=== PATIENT | female | born 1955 | race Caucasian/White ===

== ENCOUNTER → 2017-01-24 | Outpatient (CLI) | payer BC ==
[~2017-01-24] MED LIST: ADVIN50/60 INH; ALBU1AER9 INH; AMOX250C3 PO; ASPEC325 PO; CITA40TA12 PO; CLB/200 PO; FRRG PO; FURO-85 PO; METAMUCIL PO; MINO100C22 PO; NAPR1TAB9 PO; OMEP20CA59 PO
--- NOTE | 2017-01-25 13:08 | MAMMOGRAPHY REPORT ---
BILATERAL DIGITAL SCREENING MAMMOGRAM TOMOSYNTHESIS WITH CAD: 01/24/2017 CLINICAL HISTORY: Routine screening. Patient has no complaints. TECHNIQUE: Breast tomosynthesis in addition to standard 2D mammography was performed. Current study was also evaluated with a Computer Aided Detection (CAD) system. COMPARISON: Comparison is made to exams dated: 08/02/2014 mammogram, 07/26/2013 mammogram, 12/18/2010 mammogram, 12/15/2009 mammogram - [facility], 11/26/2008, and 10/16/2007. BREAST COMPOSITION: There are scattered areas of fibroglandular density in both breasts. FINDINGS: There are mild vascular calcifications within the left breast. No new suspicious mass, ar chitectural distortion or cluster of microcalcifications is seen. IMPRESSION: ACR BI-RADS CATEGORY 1: NEGATIVE There is no mammographic evidence of malignancy. A 1 year screening mammogram is recommended. The p atient will receive written notification of the results. Approximately 10% of breast cancers are not detected with mammography. A negative mammographic repor t should not delay biopsy if a clinically suggestive mass is present. Giana Mendoza M.D. ay/:01/24/2017 17:15:10 Corporate Strategist: Emi ODONNELL(Amanda)(Layla)([place]), [facility] letter sent: Normal 1/2 BI-RADS Code: ACR BI-RADS Category 1: Negative
== END | disposition home or self-care (01) ==
LOC: C.MAMM 14:21
PROVIDERS: ATTEND Family Medicine
DX: Z12.31 Encounter for screening mammogram for malignant neoplasm of breast (principal)

== ENCOUNTER 2023-03-11 09:52 | Observation (INO) ==
--- NOTE | 2023-03-03 12:42 | PAT Medication Instructions ---
Medication Instructions Date of Service March 03, 2023 Home Medications Medication Instructions Recorded amoxicillin 500 mg tablet 2,000 mg PO ONCE #4 tabs 07/29/22 amoxicillin 500 mg tablet 2,000 mg PO ONCE albuterol sulfate 90 mcg/actuation aerosol inhaler 2 inh inhalation QID PRN amantadine HCl 100 mg tablet 200 mg PO QAM aspirin 81 mg tablet,delayed release 81 mg PO DAILY atorvastatin 40 mg tablet 40 mg PO QAM carbidopa 25 mg-levodopa 100 mg tablet 1 tab PO TID celecoxib 200 mg capsule (Celebrex) 200 mg PO BID cholecalciferol (vitamin D3) 25 mcg (1,000 unit) tablet (Vitamin D3) 25 mcg PO DAILY cyanocobalamin (vitamin B-12) 1,000 mcg tablet 1,000 mcg PO DAILY duloxetine 60 mg capsule,delayed release 60 mg PO QAM fluticasone furoate 100 mcg-vilanterol 25 mcg/dose inhalation powder (Breo Ellipta) 1 inh inhalation QAM lisinopril 10 mg tablet 10 mg PO QAM minocycline 100 mg capsule 100 mg PO QAM pantoprazole 40 mg tablet,delayed release 40 mg PO BID ropinirole 0.25 mg tablet 0.5 mg PO HS vibegron 75 mg tablet (Gemtesa) 75 mg PO HS Continue as directed amoxicillin 500 mg tablet 2,000 mg PO ONCE aspirin 81 mg tablet,delayed release 81 mg PO DAILY (unless directed otherwise by surgeon) ASK your surgeon for instructions celecoxib 200 mg capsule (Celebrex) 200 mg PO BID DO NOT take the morning of surgery cholecalciferol (vitamin D3) 25 mcg (1,000 unit) tablet (Vitamin D3) 25 mcg PO DAILY cyanocobalamin (vitamin B-12) 1,000 mcg tablet 1,000 mcg PO DAILY lisinopril 10 mg tablet 10 mg PO QAM Take morning of surgery With a small sip of water, OTHERWISE NOTHING TO EAT OR DRINK AFTER MIDNIGHT: albuterol sulfate 90 mcg/actuation aerosol inhaler 2 inh inhalation QID PRN(use if needed; please bring with you to hospital day of surgery if possible) atorvastatin 40 mg tablet 40 mg PO QAM carbidopa 25 mg-levodopa 100 mg tablet 1 tab PO TID duloxetine 60 mg capsule,delayed release 60 mg PO QAM fluticasone furoate 100 mcg-vilanterol 25 mcg/dose inhalation powder (Breo Ellipta) 1 inh inhalation QAM minocycline 100 mg capsule 100 mg PO QAM amantadine HCl 100 mg tablet 200 mg PO QAM pantoprazole 40 mg tablet,delayed release 40 mg PO BID Take evening before surgery albuterol sulfate 90 mcg/actuation aerosol inhaler 2 inh inhalation QID PRN(if needed) carbidopa 25 mg-levodopa 100 mg tablet 1 tab PO TID pantoprazole 40 mg tablet,delayed release 40 mg PO BID ropinirole 0.25 mg tablet 0.5 mg PO HS vibegron 75 mg tablet (Gemtesa) 75 mg PO HS Other Notes If you have any questions please call us at [phone] or [phone] or [phone] or [phone]
--- NOTE | 2023-03-04 12:05 | Anesthesiology Consultation ---
Date of Service March 04, 2023 Assessment & Plan (1) Encounter for pre-operative examination: - COVID screening: Per assessment on 03/04: No known COVID-19 positive contacts or current COVID-19 related symptoms. Travel screen negative. At surgeon discretion if preop Covid testing being done. - Outpatient joint assessment: Pt currently scheduled for inpatient pathway. If surgeon requests review for outpatient joint pathway, patient is not recommended candidate for outpatient joint program from anesthesia standpoint. Chart Review Chart Review: Acceptable Risk for Surgery and Patient seen in Pre Admission Testing Teaching & Discussion Pre-Anesthesia Teaching/Discussion Notes: Instructed NPO after midnight before surgery,except medications with 15 cc of water. Medication instructions provided according to the PAT guidelines. History Surgery Operation Date: 03/11/23 10:30 Proposed Procedures p Right Total Knee Arthroplasty - Akshat Maldonado MD Height/Weight Height: 5 ft 4 in Weight: 100.9 kg Allergies Allergy/AdvReac Type Severity Reaction Status Date / Time bee venom protein (honey bee) Allergy Intermediate Hives Verified 03/03/23 10:57 midazolam AdvReac Intermediate hyper, Verified 03/03/23 10:57 agitation Medications Home Medications Medication Instructions Recorded Confirmed Last Taken amoxicillin 500 mg tablet 2,000 mg PO ONCE #4 tabs 07/29/22 03/03/23 Unknown albuterol sulfate 90 mcg/actuation 2 inh inhalation QID PRN sob 03/03/23 03/03/23 Unknown aerosol inhaler amantadine HCl 100 mg tablet 200 mg PO QAM 03/03/23 03/03/23 Unknown aspirin 81 mg tablet,delayed 81 mg PO DAILY 03/03/23 03/03/23 Unknown release atorvastatin 40 mg tablet 40 mg PO QAM 03/03/23 03/03/23 Unknown carbidopa 25 mg-levodopa 100 mg 1 tab PO TID 03/03/23 03/03/23 Unknown tablet celecoxib 200 mg capsule (Celebrex) 200 mg PO BID 03/03/23 03/03/23 Unknown cholecalciferol (vitamin D3) 25 25 mcg PO DAILY 03/03/23 03/03/23 Unknown mcg (1,000 unit) tablet (Vitamin D3) cyanocobalamin (vitamin B-12) 1,000 mcg PO DAILY 03/03/23 03/03/23 Unknown 1,000 mcg tablet duloxetine 60 mg capsule,delayed 60 mg PO QAM 03/03/23 03/03/23 Unknown release fluticasone furoate 100 1 inh inhalation QAM 03/03/23 03/03/23 Unknown mcg-vilanterol 25 mcg/dose inhalation powder (Breo Ellipta) lisinopril 10 mg tablet 10 mg PO QAM 03/03/23 03/03/23 Unknown minocycline 100 mg capsule 100 mg PO QAM 03/03/23 03/03/23 Unknown pantoprazole 40 mg tablet,delayed 40 mg PO BID 03/03/23 03/03/23 Unknown release ropinirole 0.25 mg tablet 0.5 mg PO HS 03/03/23 03/03/23 Unknown vibegron 75 mg tablet (Gemtesa) 75 mg PO HS 03/03/23 03/03/23 Unknown Past Medical History Medical History Anxiety and depression Arthritis Asthma COPD (chronic obstructive pulmonary disease) GERD (gastroesophageal reflux disease) History of COVID-19 05/2021 + 04/2022 > residual loss of taste Hyperlipidemia Hypertension Restless leg syndrome Right knee DJD Sarcoidosis of lung No current/recent issues Exercise / Class Metabolic Activity III < 4 Walking/Shop/Light housework (one FS (no CP, + SOB)) Past Family History Family History Other No family history of adverse response to anesthesia Past Surgical History Surgical History History of bilateral tubal ligation History of bronchoscopy History of cholecystectomy History of colonoscopy History of herniorrhaphy Right inguinal History of left knee replacement History of tonsillectomy and adenoidectomy History of tooth extraction Past Anesthesia History No Family Hx of Anesthesia Complications and Other (Combative with remote surgery, no similar issues with other surgeries/anesthesia) History of PONV No Hx of PONV and No Hx of Motion Sickness Social History Smoking Status: Never smoker Do You Dip or Chew Tobacco: No Hx Alcohol Use: Yes Alcohol type: beer alcohol intake frequency: 0-2 drinks per day (2 beers/day) Hx Substance Use: No substance use type: does not use Review of Systems Breathing stable. Patient denies chest pain, shortness of breath, fever, chills, cough, wheezing, palpitations. Physical Exam Vital Signs VITALS BP 125/75 P 73 TEMP 97.8 SP02 100%RA RESP 18 PHYSICAL Full cervical extension range of motion. Full TMJ range of motion. TMD 3 finger breaths Mallampati Score 4 (small oral opening) Dentition: intact, + caps Lungs: clear throughout to auscultation Cardiac: regular rate and rhythm, no murmurs noted Spine: normal Carotid arteries: negative bruit Extremities: no LE edema Lab Results Anesthesia Preop Results Results Anesthesia Widget: WBC 6.46 K/ul (4.8-10.8) 03/04/23 Hgb 12.4 g/dl (12.0-16.0) 03/04/23 Hct 39.3 % (37.0-47.0) 03/04/23 Plt 234 K/uL (130-400) 03/04/23 Na 141 mmol/L (136-145) 03/04/23 K 4.6 mmol/L (3.5-5.1) 03/04/23 Cl 107 mmol/L (98-107) 03/04/23 CO2 28 mmol/L (21-32) 03/04/23 BUN 20 mg/dl (6-23) 03/04/23 Creat 0.80 mg/dl (0.6-1.2) 03/04/23 Glucose Level 90 mg/dl (70-99(Fasting)) 03/04/23 PT 10.9 Seconds (9.0-12.0) 03/04/23 PTT 27.9 Seconds (21.0-31.0) 03/04/23 INR 1.0 (0.9-1.1) 03/04/23 Blood Type O Positive 03/04/23 Antibody Screen NEGATIVE 03/04/23 Testing Electrocardiogram Date: 03/04/23 NSR at 79bpm. Chest X-Ray Date: 03/04/23 FINDINGS: No lines and tubes are seen. The cardiomediastinal silhouette is normal. The lungs are clear. No evidence of pleural effusion or pneumothorax. IMPRESSION: No acute chest disease. COVID-19 Risk Screen Screening Information COVID-19 Screen Date: 03/04/23 Exposure 21 Days Family/Household +COVID Last 21 Days: No Exposure 10 Days Any COVID Exposure Last 10 Days: No Symptoms Last 10 Days Experienced COVID Sx Last 10 Days: No + COVID 0-90 Days COVID + in Last 0-90 Days: No
[~2023-03-11 09:52] MED LIST changes: +ACETAMINOPHEN 500 MG TAB PO SCH; -ADVIN50/60 INH; -ALBU1AER9 INH; -AMOX250C3 PO; -ASPEC325 PO; +BUPIVACAINE 0.5 % 5 MG/1 ML PF 10ML VIAL ONE; +BUPIVACAINE LIPOSOME/PF 266 MG, BUPIVACAINE/EPINEPHRINE 50 ML, SODIUM CHLORIDE 0.9% PF ... INFIL SCH; -CITA40TA12 PO; -CLB/200 PO; +CeleBREX 200 MG CAP PO SCH; +DEXAMETHASONE SOD INJ 4 MG/ML VIAL ONE; +FAMOTIDINE 20 MG TAB PO SCH; -FRRG PO; -FURO-85 PO; +LR 500ML BOLUS, THEN 15ML/HR IV SCH; +LR 60ML/HR IV SCH; -METAMUCIL PO; +METOCLOPRAMIDE HCL 10 MG TABLET PO SCH; -MINO100C22 PO; -NAPR1TAB9 PO; -OMEP20CA59 PO; +ROPIVACAINE 0.5% 5 MG/ML 30 ML VIAL ONE; +Scopolamine 1 MG TDSY TD SCH; +TRANEXAMIC ACID 1,000 MG **IV Intra-op IV SCH; +ceFAZolin 2000MG 2,000 MG/15 ML SYR IV SCH
[2023-03-11] MEDS: dexAMETHasone**PF** 10 MG/ML VIAL IV SCH ×2 (10:30→10:50)
--- NOTE | 2023-03-11 11:26 | History & Physical Bridge Note ---
Date of Service March 11, 2023 History & Physical Bridge Note I have examined the patient, reviewed the History & Physical and in the interval since the performance of the History & Physical I have noted the following changes of clinical significance: no changes noted
[2023-03-11] MEDS ORDERED: PROPOFOL IV EMULSION 10 MG/ML 20 ML VIAL IV ONE ×2 (12:28→14:32)
[2023-03-11] MEDS ORDERED: LIDOCAINE 2% 2 ML VIAL/AMP(20MG/ML) INFIL ONE (12:28)
[2023-03-11] MEDS ORDERED: fentaNYL citrate PF 100 MCG/2 ML VIAL ONE (12:28)
[2023-03-11] MEDS ORDERED: ROPIVACAINE 0.5% 5 MG/ML 30 ML VIAL ONE (13:09)
[2023-03-11] MEDS ORDERED: BUPIVACAINE 0.5 % 5 MG/1 ML PF 10ML VIAL ONE (13:09)
[2023-03-11] MEDS ORDERED: BUPIVACAINE LIPOSOME 1.3% 266 MG/20 ML VIAL ONE (13:15)
[2023-03-11] MEDS ORDERED: SODIUM CHLORIDE 0.9% PF 50 ML VIAL ONE (13:15)
[2023-03-11] MEDS ORDERED: BUPIVACAINE/EPINEPHRINE 0.25% 1:200,000 30 ML VIAL ONE (13:15)
[2023-03-11] MEDS ORDERED: ONDANSETRON INJ 2 MG/ML 2 ML VIAL ONE (14:43)
--- NOTE | 2023-03-11 15:25 | Operative Report ---
PG Post Operative Report Pre & Post Diagnosis Operation Date: 03/11/23 12:00 Pre-Op Diagnosis: Right Knee Advanced Degenerative Joint Disease Post-Op Diagnosis: Right Knee Advanced Degenerative Joint Disease I identified the patient and participated in the time-out.: Yes Procedure Operation Date: 03/11/23 12:00 Actual Procedures p Right Total Knee Arthroplasty(Right) - Akshat Maldonado MD Surgeon Akshat Maldonado MD Mobile Home Mechanic Fermin Rothman PA-C Estimated Blood Loss 50 Findings Consistent with Post-Op Diagnosis Operative findings revealed advanced right knee DJD. She had extensive grade 4 rvbv-bo-ibym disease primarily the medial compartment. Some spotty changes elsewhere. She had a very deep dark staining of the bone throughout. Moderate- sized joint effusion. Specimens Right knee sent for pathology Anesthesia Type Spinal MAC Complications none Disposition Accompanied Patient To Recovery: No Indications Patient is a 67-year-old female with a long history of knee problems. As she underwent a left knee replacement 8 years ago and is done well with this. Over the past several years she developed increasing pain discomfort in her right knee. Description of Procedure Operative implants consist of: 1 Biomet Vanguard size 65 right posterior stabilized femoral component. 2. Biomet size 63 tibial tray. 3. 10 mm posterior stabilized polyethylene insert. 4. 31 x 8 all poly patella. The patient was taken to the operating, identified, and placed on the operating table supine position protectors were properly padded. IV antibiotics tried by anesthesia team. A spinal anesthetic and abductor canal block had. Provided in the holding area. Cullen catheter was placed in sterile fashion. Right thigh tent was then placed in the right lower extremity then prepped and draped in usual sterile fashion. The right leg was elevated exsanguinated with use of an Esmarch and the tourniquet was placed at 300 mmHg. An anterior approach of the right knee was then performed to longitudinal incision centered over the patella. Sharp dissection was carried through subcutaneous tissue down the extensor mechanism. A medial parapatellar arthrotomy incision was made. Some subperiosteal dissection was carried out medially. The fat pad was dissected from Neath patella tendon. Lateral patellofemoral ligament was released. Patella subluxated laterally and the knee was flexed. The osteophytes taken off distal femur. The ACL and PCL were then released from distal femur the tibia subluxated anteriorly. The external tibial alignment jig was then placed in the interface the tibia and adjusted 14 mm medially. Proximal tibial cut was made removed after 2 mm of bone from the medial side. Tibia sized to a size 63. Attention drawn the femur. The distal femur examined the sharp drop with intramedullary canal was suction. A right 5 degree valgus cutting guide was placed. Distal femoral cutting block was pinned in place. Distal femoral cut was made to take an additional 3 mm of bone off distal femur. The femur was then sized to a size 65. We did downsize this almost an entire size. The AP cutting block was pinned parallel to the epicondylar axis which was 5 degrees of external rotation. The anterior cut, anterior chamfer, posterior cut, posterior chamfer cuts were made. The box cutting guide was placed in just slight lateral box cut was made. The knee was flexed. The remnants of the medial and lateral menisci were excised. The osteophytes were taken off the posterior aspect of femur. A trial femoral component was placed. Tibial tray was pinned in maximum external rotation and the drill and stem punch were used to create defect in proximal tibia for the tibial tray. The knee was then trialed and the 10 mm insert fit most appropriately. Attention drawn the patella. The patella was cleaned of all soft tissues. Patella thickness measured about 18 mm in thickness was cut down to 12. It was sized to a size 31 patella. The lug holes were drilled for the 31 patella. The lateral osteophytes removed. Patella button was placed. Knee was taken through range of motion and the patella tracked nicely with no thumbs test. Attention drawn to place the permanent components. All trial components were removed. Bone plug was placed into the distal femur limit blood loss. Double batch Palacos G cement was mixed. Biomet Vanguard size 65 right posterior stabilized femoral component, size 63 tibial tray, a 10 mm posterior stabilized polyethylene insert, and a 31 x 8 all Paller patella then cemented in place. The knee was brought out in full extension till cement hardened. Final cement check was then performed. Pericapsular tissues were injected with total of 100 cc of combination of 20 cc of Exparel, 30 cc normal saline, 50 cc of quarter percent Marcaine with epinephrine. Patient did receive 1 g tranexamic acid. The tourniquet was then let down for final tourniquet time 58 minutes. Hemostasis reduced electrocautery. The extensor mechanism then closed with combination 1 PDS suture #1 Vicryl suture in a [id number] fashion. The extensor mechanism checked found to be intact with subcutaneous tissues then closed with 2 Dexon suture in a buried interrupted fashion skin was closed skin giles. Leg was then cleaned and dried and sterile dressed with Xeroform, 4 fours, sterile cast padding, Víctor bandage were applied. Patient then transferred to the recovery room in stable condition. Patient tolerated procedure well and there were no complications. Fermin Rothman, my physician gift shop assistant, was present for the entire procedure. His assistance was essential and required for appropriate patient positioning, prepping and draping, surgical exposure, performing the technical details of the operation, placement the implants, closure of the wound, and placement of the sterile bandage. I attest to the content of the Intraoperative Record and any orders documented therein. Any exceptions are noted below.
--- NOTE | 2023-03-11 15:52 | XRay Report ---
XR knee RT 1 or 2V routine HISTORY: 67 years-old Female Surgical Post Op right knee arthroplasty COMPARISON: 01/10/2023 TECHNIQUE: 2 views of the right knee FINDINGS: Total joint arthroplasty with patellar resurfacing. Anterior midline skin gilse are present along w ith expected postoperative soft tissue swelling with deep tissue air. No acute fracture or unexpected opaque foreign body. IMPRESSION: Total joint arthroplasty with expected postoperative changes. ACT 112: Negative or not required by law. The above report was generated using voice recognition software. It may contain grammatical, syntax o r spelling errors. Electronically signed by: Ayo Garsia M.D. 03/11/2023 3:51 PM
--- NOTE | 2023-03-11 16:16 | Anesthesiology Progress Note ---
Date of Service March 11, 2023 Anesthesia Post Procedure Vital Signs Vital Signs: Temp Pulse Pulse Resp BP Pulse Ox O2 Del Method 03/11/23 16:05 86 22 126/67 99 Room Air 03/11/23 15:55 83 17 125/62 98 Room Air 03/11/23 15:45 89 20 129/41 L 99 Room Air 03/11/23 15:35 90 17 145/61 H 100 Room Air 03/11/23 15:26 36.7 C 93 H 19 125/62 99 Room Air 03/11/23 10:18 36.8 C 81 20 135/70 99 Room Air Transfer of Care Handoff Completed per policy Notes Mental Status: alert / awake / arousable Patient Amnestic to Procedure: Yes Nausea / Vomiting: adequately controlled Pain: adequately controlled Airway Patency, RR, SpO2: stable & adequate BP & HR: stable & adequate Hydration State: stable & adequate Neuraxial Anesthesia: was administered and sensory block is resolving Anesthetic Complications: no major complications apparent
[2023-03-11] MEDS ORDERED: ALBUTEROL HFA 8 GM INHALER INH PRN (16:33)
[2023-03-11] MEDS ORDERED: MAGNESIUM HYDROXIDE SUSP 30 ML UDC PO PRN (16:33)
[2023-03-11] MEDS ORDERED: METOCLOPRAMIDE HCL INJ 5 MG/ML 2 ML VIAL IV PRN (16:33)
[2023-03-11] MEDS ORDERED: HYDROmorphone INJ 0.5 MG/0.5 ML SYR IV PRN (16:33)
[2023-03-11] MEDS ORDERED: ALUMINUM/MAGNESIUM SUSP 30 ML UDC PO PRN (16:33)
[2023-03-11] MEDS ORDERED: NALOXONE HCL 0.4 MG/1 ML VIAL/CARP IV PRN (16:33)
[2023-03-11] MEDS ORDERED: oxyCODONE HCL IR 5 MG TAB (IMMEDIATE RELEASE) PO PRN (16:33)
[2023-03-11] MEDS ORDERED: bisacodyL 10 MG SUPP PR PRN (16:33)
[2023-03-11] MEDS ORDERED: ONDANSETRON INJ 2 MG/ML 2 ML VIAL IV PRN (16:33)
[2023-03-11] MEDS: SODIUM CHLORIDE 0.9% 1000ML 1,000 ML IV SCH (17:01)
[2023-03-11] MEDS: Scopolamine CHECK PATCH PLACEMENT SCH ×2 (17:02→23:44)
[2023-03-11] MEDS: KETOROLAC TROMETHAMINE 15 MG/ML VIAL IV SCH ×2 (17:40→23:19)
[2023-03-11] MEDS: ASCORBIC ACID 500 MG TAB PO SCH (18:20)
[2023-03-11] MEDS: SENNA 8.6 MG TAB PO SCH (19:46)
[2023-03-11] MEDS: DOCUSATE SODIUM 100 MG CAP PO SCH (19:46)
[2023-03-11] MEDS: PANTOprazole 40 MG TAB PO SCH (19:47)
[2023-03-11] MEDS: CARBIDOPA/LEVODOPA 25/100MG TAB PO SCH (19:48)
[2023-03-11] MEDS: ASPIRIN 81 MG ECTAB PO SCH (19:48)
[2023-03-11] MEDS: ACETAMINOPHEN 500 MG TAB PO SCH (19:49)
[2023-03-11] MEDS: ceFAZolin 2000MG 2,000 MG/15 ML SYR IV SCH (20:01)
[2023-03-11] MEDS ORDERED: rOPINIRole HCL 0.25 MG TABLET PO SCH (21:00)
[2023-03-11] MEDS ORDERED: SENNA 8.6 MG TAB PO SCH (21:00)
[2023-03-11] MEDS ORDERED: TRANEXAMIC ACID / 0.7% NACL 1,000 MG/100 ML BAG IV SCH (21:30)
[2023-03-12] MEDS: KETOROLAC TROMETHAMINE 15 MG/ML VIAL IV SCH ×2 (04:43→11:44)
[2023-03-12] MEDS: ceFAZolin 2000MG 2,000 MG/15 ML SYR IV SCH (04:43)
[2023-03-12] MEDS: SODIUM CHLORIDE 0.9% 1000ML 1,000 ML IV SCH (06:09)
[2023-03-12 06:21] LABS: Hematocrit (blood only) 32.7 % (37.0-47.0); Hemoglobin 10.4 g/dl (12.0-16.0); Mean Corpuscular Hemoglobin 28.7 pg (25.0-34.0); Mean Corpuscular Hgb Conc 31.8 g/dL (32.0-36.0); Mean Corpuscular Volume 90.1 fL (80.0-100.0); Mean Platelet Volume 11.5 fL (9.4-12.4); Platelet Count 200 K/uL (130-400); RDW Coefficient of Variation 13.2 % (11.5-14.5); RDW Standard Deviation 43.6 fL (36.4-46.3); Red Blood Count 3.63 M/uL (4.20-5.40); White Blood Count 11.98 K/ul (4.8-10.8)
[2023-03-12 06:42] LABS: BUN Creatinine Ratio 25.8 (10-20); Calcium 9.1 mg/dl (8.6-10.3); Creatinine Clr Calc Pharmacy 71.3 ml/min; Est GFR (African American) 77.7 ml/min; Est GFR (Non-African American) 67.1 ml/min; Potassium 5.1 mmol/L (3.5-5.1)
[2023-03-12] MEDS ORDERED: dexAMETHasone 10 MG in SYRINGE 0 ML IV SCH (08:00)
[2023-03-12] MEDS: ASCORBIC ACID 500 MG TAB PO SCH (08:28)
[2023-03-12] MEDS: Scopolamine CHECK PATCH PLACEMENT SCH (08:29)
[2023-03-12] MEDS: ASPIRIN 81 MG ECTAB PO SCH (08:29)
[2023-03-12] MEDS: SENNA 8.6 MG TAB PO SCH (08:29)
[2023-03-12] MEDS: CARBIDOPA/LEVODOPA 25/100MG TAB PO SCH (08:29)
[2023-03-12] MEDS: DOCUSATE SODIUM 100 MG CAP PO SCH (08:29)
[2023-03-12] MEDS: PANTOprazole 40 MG TAB PO SCH (08:29)
[2023-03-12] MEDS: ACETAMINOPHEN 500 MG TAB PO SCH (08:31)
--- NOTE | 2023-03-12 08:59 | Progress Notes ---
SUBJECTIVE: A 67-year-old white female postoperative day 1 from right knee replacement. She is doin jb pretty well. Had a good night. Not really too painful. Denies any chest pain or shortness of vernon ath. Hoping to go home. OBJECTIVE: VITAL SIGNS: Temperature 36.4. Vital signs are stable. GENERAL: Physical examination shows a pleasant, elderly female. She is sitting up in bed and talkin g to a family member. She looks comfortable. EXTREMITIES: Examination of the right knee reveals the dressing to be clean, dry and intact. She ca n dorsiflex and plantarflex her foot appropriately. NEUROLOGIC: She is neurologically intact. LABORATORY DATA: Hemoglobin 10.4. Hematocrit 32.7. Electrolytes are stable. ASSESSMENT: A 67-year-old white female postoperative day 1 from left knee replacement. She is doing well. Pain is controlled. She is neurologically intact. PLAN: 1. DVT prophylaxis includes thigh-high TEDs, SCDs, and aspirin twice a day. 2. PT/OT, weightbear as tolerated. Right total knee protocol. 3. Pain control, doing okay with current pain regimen. 4. Disposition: Plan to discharge to home with some home health later today if she does okay in the rapy. Job ID: [id number]
[2023-03-12] MEDS ORDERED: MINOCYCLINE HCL 50 MG CAP PO SCH (09:00)
[2023-03-12] MEDS ORDERED: DULoxetine HCL 60 MG CAP PO SCH (09:00)
[2023-03-12] MEDS ORDERED: MULTIVITAMIN TAB PO SCH (09:00)
[2023-03-12] MEDS ORDERED: lisinopril 10 MG TAB PO SCH (09:00)
[2023-03-12] MEDS ORDERED: AMANTADINE HCL 100 MG CAPSULE PO SCH (09:00)
[2023-03-12] MEDS ORDERED: ATORVASTATIN 40 MG TAB PO SCH (09:00)
[2023-03-12] MEDS ORDERED: CYANOCOBALAMIN (B-12) 500 MCG TABLET PO SCH (09:00)
[2023-03-12] MEDS ORDERED: FLUTICASONE/VILANTEROL 100/25MCG 14 PUFFS/INHALER INH SCH (09:00)
[2023-03-12] MEDS ORDERED: VIBEGRON 75 MG TAB PO SCH (09:00)
[2023-03-12] MEDS ORDERED: CHOLECALCIFEROL 1,000 UNITS 25 MCG TAB PO SCH (09:00)
--- NOTE | 2023-03-15 10:35 | Discharge Summary ---
Date of Service March 15, 2023 Discharge Data Procedures Performed Operation Date: 03/11/23 12:00 Actual Procedures p Right Total Knee Arthroplasty(Right) - Akshat Maldonado MD Hospital Course (1) Status post total right knee replacement: This is a 67 year old patient admitted on 03/11/23 and underwent total knee arthroplasty. She tolerated the procedure well and there were no complications. Transferred to the PACU post op and later to the orthopedic floor for further care. She was given ancef for antibiotic prophylaxis. She was also given FUENTES stockings, SCDs, and aspirin for DVT prophylaxis. Hemoglobin, hematocrit, and vital signs were monitored during her hospital stay and remained stable. Did not require any blood transfusions. There were no complications during her hospital stay. By post op day #1 the patient was tolerating a regular diet, pain was reasonably controlled with oral pain medicine, and she was participating in physical therapy. On post op day #1 the patient was discharged home and set up with home health care. __ was given printed discharge instructions including prescriptions for extra strength tylenol, aspirin, cefadroxil, ketorolac, zofran, oxycodone, and senokot. Continue physical therapy, weight bearing as tolerated. Continue FUENTES stockings. Follow up approximately 2 weeks post op or sooner if there are problems or concerns. Coding Level of Care Code None Diagnoses Status post total right knee replacement Z96.651
== END 2023-03-12 12:15 | disposition home health service (06) ==
LOC: 3N 09:52 → ASU 09:52 → 3N 03-12 02:42